=== PATIENT | male | born 1985 | race Two or more races ===

== ENCOUNTER 2021-01-15 15:03 | Inpatient (IN) | payer OTHER ==
[~2021-01-15] VITALS: Ht 170.2 cm; Wt 56.0 kg
[2021-01-15 16:35] LABS: Basophils # (auto) 0.1 10 ^3/uL (0-0.2); Basophils % (auto) 0.8 % (0.0-2.0); Eosinophils # (auto) 0.1 10 ^3/uL (0-0.8); Eosinophils % (auto) 0.5 % (0.0-7.0); Hemoglobin 9.4 g/dL (13.5-17.5); Lymphocytes % (auto) 8.3 % (10.0-50.0); Mean Corpuscular Hemoglobin 30.1 pg (28.0-32.0); Mean Corpuscular Hgb Conc. 32.2 g/dL (32.0-36.0); Mean Corpuscular Volume 93.5 fL (80.0-100.0); Monocytes # (auto) 0.3 10 ^3/uL (0-1.3); Monocytes % (auto) 2.6 % (0.0-12.0); Neutrophils # (auto) 10.4 10 ^3/uL (1.6-8.6); Neutrophils % (auto) 87.8 % (37.0-80.0); Nucleated Red Blood Cells % 0.1 %; Red Blood Cells 3.11 10^6/uL (4.5-5.90); Red Cell Distribution Width 15.2 % (11.8-14.3); White Blood Cell 11.8 10^3/uL (4.4-10.8)
[2021-01-15 16:51] LABS: Albumin 2.4 g/dL (3.4-5.0); Calcium 7.7 mg/dL (8.5-10.1); Potassium 4.3 mmol/L (3.5-5.1)
[2021-01-15 17:02] LABS: BUN/Creatinine Ratio 13.1; Bilirubin, Total 0.2 mg/dL (0.2-1.0); Total Protein 6.3 g/dL (6.4-8.2)
[2021-01-15 20:15] LABS: Urine Bacteria FEW /hpf (None Seen); Urine Blood Negative /uL (Negative); Urine Budding Yeast MODERATE /hpf (None Seen); Urine Specific Gravity 1.013 (1.001-1.035); Urine WBC 289 /hpf (0 - 3); Urine WBC Clumps PRESENT /hpf (None Seen)
[2021-01-15] MEDS ORDERED: ACETAMINOPHEN 325 MG TAB PO PRN ×2 (21:30→22:00)
[2021-01-15] MEDS ORDERED: DEXTROSE (50%) 50ML SYRG IV PRN (21:30)
[2021-01-15] MEDS ORDERED: cefTRIAXone 1GM/50ML D5W 50 ML IV ONE (21:30)
[2021-01-15] MEDS ORDERED: SODIUM CHLORIDE 0.9% 1,000 ML IV ONE (21:30)
[2021-01-15] MEDS ORDERED: HYDROcodone-ACET 5/325MG TAB PO PRN (21:30)
[2021-01-15] MEDS ORDERED: ONDANSETRON HCL 4 MG/2 ML VIAL IV PRN (21:30)
[2021-01-15 21:59] LABS: Amphetamine Screen, Urine POSITIVE (NEGATIVE); Barbiturate Scree,Urine NEGATIVE (NEGATIVE); Benzodiazephine Screen, Urine NEGATIVE (NEGATIVE); Cannabinoid Screen, Urine NEGATIVE (NEGATIVE); Cocaine Screen, Urine NEGATIVE (NEGATIVE); Opiate Scree,Urine NEGATIVE (NEGATIVE); Phencyclidine Screen, Urine NEGATIVE (NEGATIVE)
[2021-01-15] MEDS ORDERED: TEMAZEPAM 15 MG CAP PO PRN (22:00)
[2021-01-15 22:30] VITALS: BP 181/123
[2021-01-16] MEDS: InsuLIN REG 1unit/0.01ml Soln (100units/ml) SC SCH ×6 (00:09→20:29)
[2021-01-16] MEDS: ACCU-CHEK COMFORT CURVE STRIP VI SCH ×6 (00:10→20:28)
[2021-01-16 00:15] LABS: Lactic Acid w/Reflex 3.3 mmol/L (0.4-2.0)
[2021-01-16] MEDS: CLINDAMYCIN 600MG IV 50 ML IV SCH ×4 (01:00→22:11)
[2021-01-16] MEDS ORDERED: INS7030I SC (05:10)
[2021-01-16] MEDS ORDERED: INSU1INJ19 SC (05:10)
[2021-01-16 05:14] VITALS: BP 156/99
[2021-01-16 06:07] LABS: Basophils # (auto) 0.1 10 ^3/uL (0-0.2); Basophils % (auto) 0.8 % (0.0-2.0); Eosinophils # (auto) 0.1 10 ^3/uL (0-0.8); Eosinophils % (auto) 1.3 % (0.0-7.0); Hematocrit 26.2 % (41.0-53.0); Lymphocytes # (auto) 1.3 10 ^3/uL (0.4-5.4); Lymphocytes % (auto) 12.5 % (10.0-50.0); Mean Corpuscular Hemoglobin 31.4 pg (28.0-32.0); Mean Corpuscular Hgb Conc. 34.3 g/dL (32.0-36.0); Mean Corpuscular Volume 91.4 fL (80.0-100.0); Monocytes # (auto) 0.6 10 ^3/uL (0-1.3); Monocytes % (auto) 5.9 % (0.0-12.0); Neutrophils # (auto) 8.4 10 ^3/uL (1.6-8.6); Neutrophils % (auto) 79.5 % (37.0-80.0); Red Blood Cells 2.87 10^6/uL (4.5-5.90); Red Cell Distribution Width 14.3 % (11.8-14.3); White Blood Cell 10.6 10^3/uL (4.4-10.8)
[2021-01-16 06:24] LABS: Potassium 4.3 mmol/L (3.5-5.1)
[2021-01-16 06:29] LABS: Albumin 2.1 g/dL (3.4-5.0); BUN/Creatinine Ratio 14.2; Calcium 7.6 mg/dL (8.5-10.1)
[2021-01-16 06:32] LABS: Bilirubin, Total 0.2 mg/dL (0.2-1.0); Total Protein 5.3 g/dL (6.4-8.2)
[2021-01-16 09:00] VITALS: BP 125/106
[2021-01-16] MEDS ORDERED: PANTOPRAZOLE 40 MG TAB PO SCH (10:00)
[2021-01-16] MEDS: cefTRIAXone 1GM/50ML D5W 50 ML IV SCH (10:18)
[2021-01-16] MEDS ORDERED: cloNIDine HCL 0.1 MG TAB PO PRN (12:15)
[2021-01-16 13:00] VITALS: BP 172/112
[2021-01-16 17:00] VITALS: BP 143/97
[2021-01-16 21:41] VITALS: BP 148/104
[2021-01-17] MEDS: ACCU-CHEK COMFORT CURVE STRIP VI SCH ×3 (00:23→08:35)
[2021-01-17] MEDS: InsuLIN REG 1unit/0.01ml Soln (100units/ml) SC SCH ×3 (04:00→08:36)
[2021-01-17 04:47] VITALS: BP 122/87
[2021-01-17] MEDS: CLINDAMYCIN 600MG IV 50 ML IV SCH (05:58)
[2021-01-17 07:41] LABS: Alanine Aminotransferase 150 U/L (16-61); Albumin 1.9 g/dL (3.4-5.0); Alkaline Phosphatase 150 U/L (45-117); Aspartate Aminotransferase 59 U/L (15-37); Bilirubin, Direct < 0.1 mg/dL (0-0.2); Bilirubin, Total 0.2 mg/dL (0.2-1.0); Total Protein 5.1 g/dL (6.4-8.2)
[2021-01-17 08:00] VITALS: BP 142/112
[2021-01-17] MEDS: cefTRIAXone 1GM/50ML D5W 50 ML IV SCH (08:35)
[2021-01-17 09:00] VITALS: BP 142/112
[2021-01-17 10:00] VITALS: BP 128/106
[2021-01-17 10:44] VITALS: BP 128/95
[2021-01-17 11:00] VITALS: BP 140/95
[2021-01-21 10:53] LABS: Hepatitis A Total Antibody Negative (Negative)
[2021-01-21 10:58] LABS: Hepatitis B Surface Antibody Negative (Negative)
[2021-01-21 12:09] LABS: Hepatitis A Ab IgM Negative
[2021-01-21 12:56] LABS: Hepatitis B Core IgM Negative
[2021-01-21 13:12] LABS: Hepatitis C Antibody Negative (Negative)
[2021-01-21 13:13] LABS: Hepatitis C Antibody Negative (Negative)
== END 2021-01-17 11:10 | disposition home or self-care (01) | DRG 383 ==
LOC: ER 15:03 → OVERFLOW 21:20 → WEST WING 22:41
PROVIDERS: ADMIT Nurse Practitioner; ATTEND Family Medicine
DX: L03.116 Cellulitis of left lower limb (principal); E43 Unspecified severe protein-calorie malnutrition; E11.22 Type 2 diabetes mellitus with diabetic chronic kidney disease; N18.9 Chronic kidney disease, unspecified; N39.0 Urinary tract infection, site not specified; Z68.1 Body mass index [BMI] 19.9 or less, adult; Z20.822 Contact with and (suspected) exposure to COVID-19; R74.01 Elevation of levels of liver transaminase levels; R79.89 Other specified abnormal findings of blood chemistry; F12.90 Cannabis use, unspecified, uncomplicated; F15.10 Other stimulant abuse, uncomplicated; F19.10 Other psychoactive substance abuse, uncomplicated; Z71.6 Tobacco abuse counseling; Z71.51 Drug abuse counseling and surveillance of drug abuser
CPT/HCPCS: 36415; 73700; 80053; 80074; 80076; 80307; 81001; 82962; 83036; 83605; 84484; 85025; 86704; 86706; 86708; 86803; 87040; 87077; 87081; 87186; 87205; 87340; 87426; 96361; 96365; G0378; J0696; J1815; J3490

== ENCOUNTER 2021-02-20 10:20 | Inpatient (IN) | payer OTHER ==
[~2021-02-20] VITALS: Ht 170.2 cm; Wt 54.4 kg
[~2021-02-20 10:20] MED LIST: INS7030I SC; INSU1INJ19 SC
[2021-02-20 11:17] LABS: Basophils # (auto) 0.1 10 ^3/uL (0-0.2); Eosinophils # (auto) 0 10 ^3/uL (0-0.8); Eosinophils % (auto) 0.2 % (0.0-7.0); Lymphocytes # (auto) 0.9 10 ^3/uL (0.4-5.4); Mean Corpuscular Volume 100.7 fL (80.0-100.0); Monocytes # (auto) 0.4 10 ^3/uL (0-1.3); Nucleated Red Blood Cells % 0.1 %
[2021-02-20 11:21] LABS: Basophils % (auto) 0.7 % (0.0-2.0); Hematocrit 30.3 % (41.0-53.0); Lymphocytes % (auto) 7.4 % (10.0-50.0); Mean Corpuscular Hemoglobin 29.8 pg (28.0-32.0); Mean Corpuscular Hgb Conc. 29.6 g/dL (32.0-36.0); Neutrophils # (auto) 10.3 10 ^3/uL (1.6-8.6); Neutrophils % (auto) 88.7 % (37.0-80.0); Red Blood Cells 3.01 10^6/uL (4.5-5.90); White Blood Cell 11.6 10^3/uL (4.4-10.8)
[2021-02-20 11:24] LABS: Potassium 3.7 mmol/L (3.5-5.1)
[2021-02-20] MEDS ORDERED: SODIUM CHLORIDE 0.9% 500 ML IV ONE (11:30)
[2021-02-20] MEDS ORDERED: CLINDAMYCIN 600MG IV 50 ML IV ONE (11:30)
[2021-02-20 11:32] LABS: Albumin 2.3 g/dL (3.4-5.0); BUN/Creatinine Ratio 13.8; Bilirubin, Total 0.2 mg/dL (0.2-1.0); Calcium 7.7 mg/dL (8.5-10.1); Total Protein 6.3 g/dL (6.4-8.2)
[2021-02-20] MEDS ORDERED: InsuLIN REG 1unit/0.01ml Soln (100units/ml) IV ONE (12:15)
[2021-02-20] MEDS ORDERED: INSULIN LANTUS (GLARGINE) 1 /0.01ml (100units/ml) SC ONE (12:15)
[2021-02-20] MEDS ORDERED: DEXTROSE (50%) 50ML SYRG IV PRN (12:15)
[2021-02-20] MEDS: InsuLIN R (HUMAN) 100 UNITS in SODIUM CHL 0.9% 99 ML IV SCH ×2 (12:15→13:39)
[2021-02-20] MEDS: ACCU-CHEK COMFORT CURVE STRIP VI SCH ×4 (13:38→18:13)
[2021-02-20] MEDS ORDERED: MORPHINE SULFATE INJECTION 2 MG/ML SYRG IV PRN ×3 (15:15→15:45)
[2021-02-20] MEDS ORDERED: NITROGLYCERIN 0.4 MG SL TAB SL PRN ×2 (15:15→15:45)
[2021-02-20 15:31] VITALS: BP 151/101
[2021-02-20] MEDS ORDERED: hydrALAZINE HCL 20 MG/ML VL IV PRN (15:45)
[2021-02-20] MEDS ORDERED: DOCUSATE SOD 100 MG CAP PO PRN (15:45)
[2021-02-20] MEDS ORDERED: HYDROcodone-ACET 5/325MG TAB PO PRN (15:45)
[2021-02-20] MEDS ORDERED: LACTATED RINGER'S 2,000 ML IV ONE (15:45)
[2021-02-20] MEDS ORDERED: D5W/SOD CHLO 0.9% 1,000 ML IV PRN (15:45)
[2021-02-20] MEDS ORDERED: PIPERACILLIN-TAZOB 2.25GM 50 ML IV ONE (15:45)
[2021-02-20] MEDS ORDERED: SOD CHL 0.9%/ KCL 20MEQ 1,000 ML IV PRN (15:45)
[2021-02-20] MEDS ORDERED: PANTOPRAZOLE 40 MG/10 ML VIAL INJ IV ONE (15:45)
[2021-02-20] MEDS ORDERED: METOCLOPRAMIDE HCL 5MG/ml INJ 2ml VIAL IV PRN (15:45)
[2021-02-20] MEDS ORDERED: LORazepam 0.5 MG TAB PO PRN (15:45)
[2021-02-20] MEDS ORDERED: ACETAMINOPHEN 325 MG TAB PO PRN (15:45)
[2021-02-20] MEDS ORDERED: VANCOMYCIN PER PHARMACY 0 MG IV SCH (15:45)
[2021-02-20] MEDS ORDERED: SODIUM CHLORIDE 0.9% 3,000 ML IV ONE (15:45)
[2021-02-20] MEDS ORDERED: SODIUM CHLORIDE 0.9% 1,000 ML IV SCH (15:45)
[2021-02-20] MEDS ORDERED: ENOXAPARIN SOD 30 MG/0.3 ML SYRINGE SC ONE (15:45)
[2021-02-20] MEDS ORDERED: ALUM & MAG HYDROX-SIMETH LIQ(MAALOX) 30 ML PO PRN (15:45)
[2021-02-20 16:31] LABS: Urine Bacteria FEW /hpf (None Seen); Urine Blood Negative /uL (Negative); Urine Budding Yeast FEW /hpf (None Seen); Urine Hyaline Cast FEW /lpf (0 - 2); Urine Specific Gravity 1.016 (1.001-1.035); Urine WBC 60 /hpf (0 - 3)
[2021-02-20 16:42] LABS: Alcohol, Urine < 3.0 mg/dL (0-10); Amphetamine Screen, Urine POSITIVE (NEGATIVE); Barbiturate Scree,Urine NEGATIVE (NEGATIVE); Benzodiazephine Screen, Urine NEGATIVE (NEGATIVE); Cocaine Screen, Urine NEGATIVE (NEGATIVE); Phencyclidine Screen, Urine NEGATIVE (NEGATIVE)
[2021-02-20 16:50] LABS: Cannabinoid Screen, Urine NEGATIVE (NEGATIVE); Opiate Scree,Urine NEGATIVE (NEGATIVE)
[2021-02-20] MEDS ORDERED: VANCOMYCIN 1GM/250ML 250 ML IV ONE (17:00)
[2021-02-20 17:23] LABS: % Iron Saturation 26.8 % (20-55)
[2021-02-20 17:25] LABS: Cholesterol 154 mg/dL (< 200)
[2021-02-20 17:28] LABS: HDL Cholesterol 94 mg/dL (40-59); LDL Cholesterol 42 mg/dL (< 100); Triglycerides 109 mg/dL (< 150)
[2021-02-20 18:51] LABS: INR 1.06 (0.9-1.15); Partial Thromboplastin Time 28.8 sec (23.6-33.0)
[2021-02-20] MEDS ORDERED: ATORVASTATIN 20 MG TAB PO SCH (22:00)
[2021-02-20] MEDS ORDERED: PIPERACILLIN-TAZOB 2.25GM 50 ML IV SCH (22:00)
[2021-02-21] MEDS ORDERED: PANTOPRAZOLE 40 MG/10 ML VIAL INJ IV SCH (10:00)
[2021-02-21] MEDS ORDERED: INSULIN LANTUS (GLARGINE) 1 /0.01ml (100units/ml) SC SCH (10:00)
[2021-02-21] MEDS ORDERED: ASPirin 81 mg TAB PO SCH (10:00)
[2021-02-21] MEDS ORDERED: ENOXAPARIN SOD 30 MG/0.3 ML SYRINGE SC SCH (10:00)
== END 2021-02-20 19:02 | disposition left against medical advice (07) | DRG 720 ==
LOC: ER 10:20 → OVERFLOW 15:09
PROVIDERS: ADMIT Hospitalist; ATTEND Internal Medicine
DX: A41.9 Sepsis, unspecified organism (principal); N17.0 Acute kidney failure with tubular necrosis; E43 Unspecified severe protein-calorie malnutrition; E11.10 Type 2 diabetes mellitus with ketoacidosis without coma; D63.8 Anemia in other chronic diseases classified elsewhere; E11.22 Type 2 diabetes mellitus with diabetic chronic kidney disease; D50.0 Iron deficiency anemia secondary to blood loss (chronic); L03.116 Cellulitis of left lower limb; E78.5 Hyperlipidemia, unspecified; F17.210 Nicotine dependence, cigarettes, uncomplicated; I12.9 Hypertensive chronic kidney disease with stage 1 through stage 4 chronic kidney disease, or unspecified chronic kidney disease; K29.70 Gastritis, unspecified, without bleeding; Z53.29 Procedure and treatment not carried out because of patient's decision for other reasons; I16.9 Hypertensive crisis, unspecified; Z68.1 Body mass index [BMI] 19.9 or less, adult; E11.40 Type 2 diabetes mellitus with diabetic neuropathy, unspecified; K21.9 Gastro-esophageal reflux disease without esophagitis; N18.4 Chronic kidney disease, stage 4 (severe); B19.9 Unspecified viral hepatitis without hepatic coma; F19.10 Other psychoactive substance abuse, uncomplicated; F12.10 Cannabis abuse, uncomplicated; F15.10 Other stimulant abuse, uncomplicated; Z83.3 Family history of diabetes mellitus; Z89.412 Acquired absence of left great toe; Z91.19 Patient's noncompliance with other medical treatment and regimen; Z82.3 Family history of stroke; R65.20 Severe sepsis without septic shock; Z79.4 Long term (current) use of insulin
CPT/HCPCS: 36415; 36600; 71045; 73700; 76705; 80053; 80061; 80307; 81001; 82010; 82805; 82962; 83036; 83540; 83550; 83880; 83930; 84443; 84484; 85025; 85610; 85652; 85730; 86850; 86900; 86901; 87040; 87086; 93005; 96365; 96372; 96375; 99291; C9113; G0378; J1815; J2543; J3490

== ENCOUNTER 2021-03-02 01:19 | Emergency (ER) | payer OTHER ==
[~2021-03-02] VITALS: Ht 170.2 cm; Wt 54.4 kg
[2021-03-02 03:31] LABS: Lymphocytes # (auto) 0.8 10 ^3/uL (0.4-5.4); Monocytes # (auto) 0.5 10 ^3/uL (0-1.3); Monocytes % (auto) 4.7 % (0.0-12.0); Neutrophils # (auto) 9.8 10 ^3/uL (1.6-8.6)
[2021-03-02 03:33] LABS: Basophils # (auto) 0 10 ^3/uL (0-0.2); Basophils % (auto) 0.3 % (0.0-2.0); Eosinophils # (auto) 0 10 ^3/uL (0-0.8); Eosinophils % (auto) 0.4 % (0.0-7.0); Hematocrit 24.8 % (41.0-53.0); Hemoglobin 8.3 g/dL (13.5-17.5); Lymphocytes % (auto) 7.4 % (10.0-50.0); Mean Corpuscular Hemoglobin 29.9 pg (28.0-32.0); Mean Corpuscular Hgb Conc. 33.3 g/dL (32.0-36.0); Mean Corpuscular Volume 89.9 fL (80.0-100.0); Neutrophils % (auto) 87.2 % (37.0-80.0); Red Blood Cells 2.76 10^6/uL (4.5-5.90); Red Cell Distribution Width 17.1 % (11.8-14.3); White Blood Cell 11.2 10^3/uL (4.4-10.8)
[2021-03-02 03:49] LABS: Albumin 2.4 g/dL (3.4-5.0); Magnesium 3.1 mg/dL (1.6-2.6); Potassium 3.3 mmol/L (3.5-5.1)
[2021-03-02 03:52] LABS: BUN/Creatinine Ratio 14.8; Bilirubin, Total 0.2 mg/dL (0.2-1.0); Total Protein 6.3 g/dL (6.4-8.2)
[2021-03-02] MEDS ORDERED: CEFEPIME 2 GM in SODIUM CHL 0.9% 50 ML IV ONE (04:30)
[2021-03-02] MEDS ORDERED: VANCOMYCIN 1GM/250ML 250 ML IV ONE (04:30)
[2021-03-02 12:20] VITALS: BP 125/80
== END 2021-03-02 12:22 | disposition home or self-care (01) ==
LOC: ER 01:19
DX: L03.116 Cellulitis of left lower limb (principal); L03.115 Cellulitis of right lower limb; E11.65 Type 2 diabetes mellitus with hyperglycemia; E11.22 Type 2 diabetes mellitus with diabetic chronic kidney disease; I12.9 Hypertensive chronic kidney disease with stage 1 through stage 4 chronic kidney disease, or unspecified chronic kidney disease; N18.9 Chronic kidney disease, unspecified; F17.210 Nicotine dependence, cigarettes, uncomplicated; Z20.822 Contact with and (suspected) exposure to COVID-19
CPT/HCPCS: 36415; 73590; 80053; 82140; 83605; 83735; 85025; 85652; 87040; 87426; 96365; 96366; 96367; 99285; J0692; J3370

== ENCOUNTER 2021-03-12 14:08 | Inpatient (IN) | payer OTHER ==
[~2021-03-12] VITALS: Ht 165.1 cm; Wt 48.8 kg
[2021-03-12] MEDS ORDERED: CLINDAMYCIN 600 MG/4 ML VL IM ONE (15:15)
[2021-03-12] MEDS ORDERED: cefTRIAXone W LIDOCAINE 1 GM IM IM ONE (15:15)
[2021-03-12] MEDS ORDERED: SODIUM CHLORIDE 0.9% 1,000 ML IV ONE (21:30)
[2021-03-12 22:43] LABS: Basophils # (auto) 0.1 10 ^3/uL (0-0.2); Basophils % (auto) 0.4 % (0.0-2.0); Eosinophils # (auto) 0 10 ^3/uL (0-0.8); Monocytes # (auto) 0.5 10 ^3/uL (0-1.3); Monocytes % (auto) 3.1 % (0.0-12.0); Nucleated Red Blood Cells % 0.1 %; Red Blood Cells 2.55 10^6/uL (4.5-5.90)
[2021-03-12 22:44] LABS: Hematocrit 23.3 % (41.0-53.0); Hemoglobin 7.4 g/dL (13.5-17.5); Lymphocytes # (auto) 1.1 10 ^3/uL (0.4-5.4); Lymphocytes % (auto) 7.1 % (10.0-50.0); Mean Corpuscular Hemoglobin 29.2 pg (28.0-32.0); Mean Corpuscular Hgb Conc. 31.9 g/dL (32.0-36.0); Mean Corpuscular Volume 91.5 fL (80.0-100.0); Neutrophils # (auto) 14.1 10 ^3/uL (1.6-8.6); Neutrophils % (auto) 89.4 % (37.0-80.0); Red Cell Distribution Width 17.1 % (11.8-14.3); White Blood Cell 15.8 10^3/uL (4.4-10.8)
[2021-03-12 23:01] LABS: Alanine Aminotransferase 90 U/L (16-61); Albumin 1.6 g/dL (3.4-5.0); Anion Gap 10 (5-15); Aspartate Aminotransferase 155 U/L (15-37); BUN/Creatinine Ratio 15.1; Blood Alcohol < 3.0 mg/dL (0-5); Blood Urea Nitrogen 57 mg/dL (7-18); Calcium 8.2 mg/dL (8.5-10.1); Carbon Dioxide 14 mmol/L (21-32); Chloride 118 mmol/L (98-107); GFR African American 24 mL/min; GFR Non-African American 20 mL/min; Glucose 218 mg/dL (74-106); Potassium 4.2 mmol/L (3.5-5.1); Sodium 142 mmol/L (136-145)
[2021-03-12 23:04] LABS: Alkaline Phosphatase 241 U/L (45-117); Bilirubin, Total 0.2 mg/dL (0.2-1.0); Lactic Acid w/Reflex 2.5 mmol/L (0.4-2.0); Total Protein 5.5 g/dL (6.4-8.2)
[2021-03-13] VITALS (7 sets, daily range): BP systolic 120–146; BP diastolic 79–101
[2021-03-13] MEDS ORDERED: ONDANSETRON HCL 4 MG/2 ML VIAL IV PRN (06:45)
[2021-03-13] MEDS ORDERED: DEXTROSE (50%) 50ML SYRG IV PRN ×2 (06:45→15:45)
[2021-03-13] MEDS ORDERED: TEMAZEPAM 15 MG CAP PO PRN (06:45)
[2021-03-13] MEDS ORDERED: SODIUM CHLORIDE 0.9% 500 ML IV ONE (06:45)
[2021-03-13] MEDS: ACCU-CHEK COMFORT CURVE STRIP VI SCH ×3 (08:00→18:05)
[2021-03-13] MEDS: InsuLIN REG 1unit/0.01ml Soln (100units/ml) SC SCH ×3 (08:05→18:07)
[2021-03-13] MEDS: SODIUM CHLORIDE 0.9% 1,000 ML IV SCH ×2 (08:27→20:00)
[2021-03-13] MEDS ORDERED: cefTRIAXone 1GM/50ML D5W 50 ML IV SCH (09:00)
[2021-03-13] MEDS: ZINC SULFATE 220mg CAP or TAB PO SCH (09:24)
[2021-03-13] MEDS: ASCORBIC ACID 500 MG TAB PO SCH ×2 (09:25→21:10)
[2021-03-13] MEDS: HYDROcodone-ACET 5/325MG TAB PO PRN ×2 (09:56→21:10)
[2021-03-13] MEDS ORDERED: CLINDAMYCIN 600MG IV 50 ML IV SCH (14:00)
[2021-03-13 14:49] LABS: Basophils # (auto) 0 10 ^3/uL (0-0.2); Eosinophils # (auto) 0 10 ^3/uL (0-0.8); Lymphocytes # (auto) 0.9 10 ^3/uL (0.4-5.4); Lymphocytes % (auto) 4.6 % (10.0-50.0); Monocytes # (auto) 0.5 10 ^3/uL (0-1.3); Nucleated Red Blood Cells % 0.1 %
[2021-03-13 14:52] LABS: Basophils % (auto) 0.1 % (0.0-2.0); Hematocrit 21.3 % (41.0-53.0); Mean Corpuscular Hemoglobin 29.3 pg (28.0-32.0); Mean Corpuscular Hgb Conc. 32.3 g/dL (32.0-36.0); Mean Corpuscular Volume 90.7 fL (80.0-100.0); Monocytes % (auto) 2.4 % (0.0-12.0); Neutrophils % (auto) 92.9 % (37.0-80.0); Red Blood Cells 2.34 10^6/uL (4.5-5.90); Red Cell Distribution Width 16.8 % (11.8-14.3); White Blood Cell 20.4 10^3/uL (4.4-10.8)
[2021-03-13 15:01] LABS: Hemoglobin 6.9 g/dL (13.5-17.5)
[2021-03-13 16:14] LABS: Alanine Aminotransferase 84 U/L (16-61); Albumin 1.5 g/dL (3.4-5.0); Alkaline Phosphatase 233 U/L (45-117); Anion Gap 12 (5-15); Aspartate Aminotransferase 93 U/L (15-37); Bilirubin, Total < 0.1 mg/dL (0.2-1.0); Blood Urea Nitrogen 54 mg/dL (7-18); Calcium 7.6 mg/dL (8.5-10.1); Carbon Dioxide 11 mmol/L (21-32); Chloride 119 mmol/L (98-107); GFR African American 25 mL/min; GFR Non-African American 21 mL/min; Glucose 128 mg/dL (74-106); Potassium 3.8 mmol/L (3.5-5.1); Sodium 142 mmol/L (136-145); Total Protein 5.3 g/dL (6.4-8.2)
[2021-03-13] MEDS ORDERED: FLUCONAZOLE 100 MG TAB PO ONE (16:30)
[2021-03-13] MEDS: SODIUM BICARBONATE 650 MG TAB PO SCH ×2 (18:04→21:10)
[2021-03-13] MEDS: AMPICILLIN INJ 1 GM in SODIUM CHL 0.9% 50 ML IV SCH (18:04)
[2021-03-13 19:40] LABS: Urine Bacteria NONE SEEN /hpf (None Seen); Urine Blood 1+ /uL (Negative); Urine Budding Yeast LOADED /hpf (None Seen); Urine WBC 40 /hpf (0 - 3)
[2021-03-13] MEDS: INSULIN LANTUS (GLARGINE) 1 /0.01ml (100units/ml) SC SCH (21:17)
[2021-03-14] MEDS: ACCU-CHEK COMFORT CURVE STRIP VI SCH ×5 (00:08→23:16)
[2021-03-14] MEDS: InsuLIN REG 1unit/0.01ml Soln (100units/ml) SC SCH ×5 (00:13→23:17)
[2021-03-14] MEDS: AMPICILLIN INJ 1 GM in SODIUM CHL 0.9% 50 ML IV SCH ×3 (02:07→18:26)
[2021-03-14 05:00] VITALS: BP 134/96
[2021-03-14] MEDS: SODIUM BICARBONATE 650 MG TAB PO SCH ×4 (05:39→21:28)
[2021-03-14 08:17] LABS: Basophils # (auto) 0 10 ^3/uL (0-0.2); Eosinophils # (auto) 0 10 ^3/uL (0-0.8); Red Cell Distribution Width 17.1 % (11.8-14.3)
[2021-03-14 08:20] LABS: Basophils % (auto) 0.1 % (0.0-2.0); Hematocrit 24.6 % (41.0-53.0); Hemoglobin 7.9 g/dL (13.5-17.5); Lymphocytes # (auto) 0.6 10 ^3/uL (0.4-5.4); Lymphocytes % (auto) 2.6 % (10.0-50.0); Mean Corpuscular Hemoglobin 28.6 pg (28.0-32.0); Mean Corpuscular Hgb Conc. 32.2 g/dL (32.0-36.0); Mean Corpuscular Volume 88.7 fL (80.0-100.0); Monocytes # (auto) 0.5 10 ^3/uL (0-1.3); Monocytes % (auto) 2.1 % (0.0-12.0); Neutrophils # (auto) 22.5 10 ^3/uL (1.6-8.6); Neutrophils % (auto) 95.2 % (37.0-80.0); Nucleated Red Blood Cells % 0.1 %; Red Blood Cells 2.78 10^6/uL (4.5-5.90); White Blood Cell 23.6 10^3/uL (4.4-10.8)
[2021-03-14 08:41] LABS: Potassium 3.5 mmol/L (3.5-5.1)
[2021-03-14 08:57] LABS: Albumin 1.4 g/dL (3.4-5.0); BUN/Creatinine Ratio 16.7; Bilirubin, Total 0.1 mg/dL (0.2-1.0); Calcium 7.4 mg/dL (8.5-10.1); Total Protein 5.2 g/dL (6.4-8.2)
[2021-03-14 09:00] VITALS: BP 124/89
[2021-03-14] MEDS: cefTRIAXone 1GM/50ML D5W 50 ML IV SCH (09:22)
[2021-03-14] MEDS: ZINC SULFATE 220mg CAP or TAB PO SCH (09:23)
[2021-03-14] MEDS: FLUCONAZOLE 100 MG TAB PO SCH (09:23)
[2021-03-14] MEDS: ASCORBIC ACID 500 MG TAB PO SCH ×2 (09:23→21:29)
[2021-03-14] MEDS: SODIUM CHLORIDE 0.9% 1,000 ML IV SCH ×2 (09:25→22:45)
[2021-03-14 10:58] LABS: Hepatitis A Ab IgM Negative
[2021-03-14 11:10] LABS: Hepatitis B Core IgM Negative
[2021-03-14 11:17] LABS: Hepatitis C Antibody Negative (Negative)
[2021-03-14 13:00] VITALS: BP 142/93
[2021-03-14] MEDS: HYDROcodone-ACET 5/325MG TAB PO PRN (15:12)
[2021-03-14 16:14] VITALS: BP 148/103
[2021-03-14 22:00] VITALS: BP 148/103
[2021-03-14] MEDS: INSULIN LANTUS (GLARGINE) 1 /0.01ml (100units/ml) SC SCH (23:16)
[2021-03-15] MEDS: HYDROcodone-ACET 5/325MG TAB PO PRN ×2 (01:22→23:44)
[2021-03-15] MEDS: AMPICILLIN INJ 1 GM in SODIUM CHL 0.9% 50 ML IV SCH ×2 (02:08→10:36)
[2021-03-15 05:00] VITALS: BP 128/89
[2021-03-15] MEDS: InsuLIN REG 1unit/0.01ml Soln (100units/ml) SC SCH ×3 (05:28→18:24)
[2021-03-15] MEDS: ACCU-CHEK COMFORT CURVE STRIP VI SCH ×4 (05:28→18:23)
[2021-03-15] MEDS: SODIUM BICARBONATE 650 MG TAB PO SCH ×4 (05:30→21:42)
[2021-03-15 08:24] LABS: Chloride 123 mmol/L (98-107); Sodium 147 mmol/L (136-145)
[2021-03-15 08:43] LABS: Alanine Aminotransferase 47 U/L (16-61); Albumin 1.2 g/dL (3.4-5.0); Alkaline Phosphatase 175 U/L (45-117); Anion Gap 8 (5-15); Aspartate Aminotransferase 28 U/L (15-37); BUN/Creatinine Ratio 17.3; Bilirubin, Direct < 0.1 mg/dL (0-0.2); Bilirubin, Total < 0.1 mg/dL (0.2-1.0); Blood Urea Nitrogen 51 mg/dL (7-18); Calcium 7.4 mg/dL (8.5-10.1); Carbon Dioxide 16 mmol/L (21-32); GFR African American 32 mL/min; GFR Non-African American 26 mL/min
[2021-03-15 09:00] VITALS: BP 127/89
[2021-03-15] MEDS: cefTRIAXone 1GM/50ML D5W 50 ML IV SCH (09:04)
[2021-03-15 09:29] LABS: Glucose 48 mg/dL (74-106)
[2021-03-15] MEDS ORDERED: POTASSIUM CHL 20 Meq TABLET PO ONE (09:45)
[2021-03-15] MEDS: ASCORBIC ACID 500 MG TAB PO SCH ×2 (10:36→21:43)
[2021-03-15] MEDS: FLUCONAZOLE 100 MG TAB PO SCH (10:36)
[2021-03-15] MEDS: ZINC SULFATE 220mg CAP or TAB PO SCH (10:36)
[2021-03-15] MEDS ORDERED: VANCOMYCIN PER PHARMACY 0 MG IV SCH (11:45)
[2021-03-15] MEDS ORDERED: REMDESIVIR PER PHARMACY 0 ML IV SCH ×2 (12:00→13:00)
[2021-03-15 13:00] VITALS: BP 129/90
[2021-03-15] MEDS ORDERED: VANCOMYCIN 1GM/250ML 250 ML IV ONE (13:00)
[2021-03-15] MEDS ORDERED: DEXTROSE (25%) 10 ML SYRG IV ONE (14:00)
[2021-03-15] MEDS ORDERED: DEXTROSE (50%) 50ML SYRG IV PRN (14:00)
[2021-03-15] MEDS ORDERED: REMDESIVIR 200 MG in NS 210ml LOADING DOSE ADULT IV ONE ×4 (15:00)
[2021-03-15] MEDS: PIPERACILLIN-TAZOB 3.375GM 100 ML IV SCH ×2 (16:49→23:43)
[2021-03-15 17:00] VITALS: BP 140/90
[2021-03-15] MEDS: ACETAMINOPHEN 325 MG TAB PO PRN (18:13)
[2021-03-15 22:00] VITALS: BP 110/80
[2021-03-15] MEDS ORDERED: INSULIN LANTUS (GLARGINE) 1 /0.01ml (100units/ml) SC SCH (22:00)
[2021-03-16] MEDS: ACCU-CHEK COMFORT CURVE STRIP VI SCH ×8 (00:13→23:18)
[2021-03-16] MEDS: InsuLIN REG 1unit/0.01ml Soln (100units/ml) SC SCH ×5 (00:22→23:26)
[2021-03-16 05:00] VITALS: BP 131/92
[2021-03-16] MEDS: SODIUM BICARBONATE 650 MG TAB PO SCH ×4 (05:57→21:24)
[2021-03-16] MEDS: PIPERACILLIN-TAZOB 3.375GM 100 ML IV SCH ×3 (06:46→23:19)
[2021-03-16 08:00] VITALS: BP 124/89
[2021-03-16 09:00] VITALS: BP 124/89
[2021-03-16] MEDS: ASCORBIC ACID 500 MG TAB PO SCH ×2 (09:33→21:24)
[2021-03-16] MEDS: ZINC SULFATE 220mg CAP or TAB PO SCH (09:33)
[2021-03-16] MEDS: HYDROcodone-ACET 5/325MG TAB PO PRN ×2 (09:34→16:20)
[2021-03-16 10:33] LABS: Potassium 4.2 mmol/L (3.5-5.1)
[2021-03-16] MEDS: SODIUM CHLORIDE 0.9% 1,000 ML IV SCH (12:00)
[2021-03-16] MEDS ORDERED: ENOXAPARIN SOD 30 MG/0.3 ML SYRINGE SC ONE (12:00)
[2021-03-16 13:00] VITALS: BP 122/92
[2021-03-16 13:20] LABS: Eosinophils # (auto) 0 10 ^3/uL (0-0.8); Hemoglobin 7.8 g/dL (13.5-17.5); Mean Corpuscular Volume 89.1 fL (80.0-100.0); Monocytes # (auto) 0.2 10 ^3/uL (0-1.3)
[2021-03-16 13:22] LABS: Basophils # (auto) 0.1 10 ^3/uL (0-0.2); Basophils % (auto) 0.4 % (0.0-2.0); Eosinophils % (auto) 0.3 % (0.0-7.0); Hematocrit 24.4 % (41.0-53.0); Lymphocytes # (auto) 0.7 10 ^3/uL (0.4-5.4); Lymphocytes % (auto) 4.4 % (10.0-50.0); Mean Corpuscular Hemoglobin 28.6 pg (28.0-32.0); Monocytes % (auto) 1.3 % (0.0-12.0); Neutrophils % (auto) 93.6 % (37.0-80.0); Nucleated Red Blood Cells % 0.1 %; Red Blood Cells 2.74 10^6/uL (4.5-5.90); Red Cell Distribution Width 17.6 % (11.8-14.3); White Blood Cell 17.1 10^3/uL (4.4-10.8)
[2021-03-16] MEDS ORDERED: REMDESIVIR 100mg 100 MG in SODIUM CHL 0.9% 230 ML IV SCH (15:00)
[2021-03-16] MEDS ORDERED: FLUCONAZOLE 100 MG TAB PO ONE (15:00)
[2021-03-16] MEDS: REMDESIVIR 100mg 50 MG in SODIUM CHL 0.9% 90 ML IV SCH (15:43)
[2021-03-16 16:52] VITALS: BP 134/101
[2021-03-16] MEDS ORDERED: VANCOMYCIN 500 MG in D5W 5% 100 ML IV SCH (18:00)
[2021-03-16 22:00] VITALS: BP 129/80
[2021-03-16] MEDS ORDERED: ETOMIDATE (2MG/ML) 20ML VIAL IV ONE (23:44)
[2021-03-16] MEDS ORDERED: SUCCINYLCHOLINE CHLORIDE 20 MG/ML 10ML VIAL IV ONE (23:44)
[2021-03-17] VITALS (26 sets, daily range): BP systolic 82–163; BP diastolic 49–106
[2021-03-17] MEDS ORDERED: MIDAZOLAM DRIP 50 mg/50mL 100 ML IV ONE (00:26)
[2021-03-17] MEDS: MIDAZOLAM DRIP 50 mg/50mL 50 ML IV SCH ×5 (00:45→22:50)
[2021-03-17] MEDS: PROPOFOL 100 ML IV SCH ×2 (00:45→06:37)
[2021-03-17] MEDS ORDERED: PROPOFOL 100 ML IV ONE (01:06)
[2021-03-17] MEDS: fentaNYL Drip 2500mCg/250mlNS 250 ML IV SCH ×3 (01:15→22:52)
[2021-03-17] MEDS ORDERED: NOREPINEPHRINE 8 MG/250ML KIT 250 ML IV SCH (01:15)
[2021-03-17] MEDS: NOREPINEPHRINE 8 MG/250ML KIT 250 ML IV SCH (01:30)
[2021-03-17] MEDS ORDERED: NOREPINEPHRINE 8 MG/250ML KIT 250 ML IV ONE (02:15)
[2021-03-17] MEDS: SODIUM CHLORIDE 0.9% 1,000 ML IV SCH ×2 (04:24→23:02)
[2021-03-17] MEDS: ACCU-CHEK COMFORT CURVE STRIP VI SCH ×3 (06:00→16:40)
[2021-03-17] MEDS: InsuLIN REG 1unit/0.01ml Soln (100units/ml) SC SCH ×3 (06:00→18:00)
[2021-03-17] MEDS: SODIUM BICARBONATE 650 MG TAB PO SCH ×3 (06:00→17:31)
[2021-03-17] MEDS: PIPERACILLIN-TAZOB 3.375GM 100 ML IV SCH (08:00)
[2021-03-17] MEDS: ZINC SULFATE 220mg CAP or TAB PO SCH (09:32)
[2021-03-17] MEDS: FLUCONAZOLE 100 MG TAB PO SCH (09:32)
[2021-03-17] MEDS: ENOXAPARIN SOD 30 MG/0.3 ML SYRINGE SC SCH (09:32)
[2021-03-17] MEDS: ASCORBIC ACID 500 MG TAB PO SCH ×2 (09:32→23:00)
[2021-03-17] MEDS: ACETAMINOPHEN 325 MG TAB PO PRN (12:00)
[2021-03-17] MEDS ORDERED: VANCOMYCIN 1GM/250ML 250 ML IV ONE (12:00)
[2021-03-17] MEDS ORDERED: PHENYLEPHRINE IV 250 ML IV ONE (12:25)
[2021-03-17] MEDS: PHENYLEPHRINE IV 250 ML IV SCH (12:30)
[2021-03-17 12:51] LABS: Basophils # (auto) 0 10 ^3/uL (0-0.2); Basophils % (auto) 0.1 % (0.0-2.0); Eosinophils # (auto) 0 10 ^3/uL (0-0.8); Hematocrit 30.9 % (41.0-53.0); Hemoglobin 9.6 g/dL (13.5-17.5); Lymphocytes # (auto) 0.7 10 ^3/uL (0.4-5.4); Lymphocytes % (auto) 3.6 % (10.0-50.0); Mean Corpuscular Hemoglobin 27.6 pg (28.0-32.0); Mean Corpuscular Hgb Conc. 31.2 g/dL (32.0-36.0); Mean Corpuscular Volume 88.6 fL (80.0-100.0); Monocytes # (auto) 0.2 10 ^3/uL (0-1.3); Monocytes % (auto) 0.7 % (0.0-12.0); Neutrophils # (auto) 19.7 10 ^3/uL (1.6-8.6); Neutrophils % (auto) 95.6 % (37.0-80.0); Red Blood Cells 3.49 10^6/uL (4.5-5.90); Red Cell Distribution Width 17.7 % (11.8-14.3); White Blood Cell 20.7 10^3/uL (4.4-10.8)
[2021-03-17 12:56] LABS: Chloride 116 mmol/L (98-107); Sodium 141 mmol/L (136-145)
[2021-03-17 13:14] LABS: Alanine Aminotransferase 32 U/L (16-61); Alkaline Phosphatase 186 U/L (45-117); Anion Gap 12 (5-15); Aspartate Aminotransferase 59 U/L (15-37); BUN/Creatinine Ratio 12.2; Bilirubin, Total < 0.1 mg/dL (0.2-1.0); Blood Urea Nitrogen 43 mg/dL (7-18); Calcium 6.4 mg/dL (8.5-10.1); Carbon Dioxide 13 mmol/L (21-32); GFR African American 26 mL/min; GFR Non-African American 21 mL/min; Glucose 103 mg/dL (74-106); Total Protein 5.1 g/dL (6.4-8.2)
[2021-03-17 13:17] LABS: Potassium 5.7 mmol/L (3.5-5.1)
[2021-03-17] MEDS ORDERED: DEXTROSE (50%) 50ML SYRG IV STA (14:47)
[2021-03-17] MEDS ORDERED: InsuLIN REG 1unit/0.01ml Soln (100units/ml) IV STA (14:47)
[2021-03-17] MEDS: REMDESIVIR 100mg 50 MG in SODIUM CHL 0.9% 90 ML IV SCH (14:53)
[2021-03-17] MEDS ORDERED: SODIUM ZIRCONIUM CYCL 10 GM PAK ONE (14:55)
[2021-03-17] MEDS ORDERED: SODIUM ZIRCONIUM CYCL 10 GM PAK PO ONE (15:00)
[2021-03-17] MEDS ORDERED: LORazepam 2MG/ML-1ML VIAL ONE ×5 (15:32→18:01)
[2021-03-17 16:23] LABS: BUN/Creatinine Ratio 12.4; Calcium 6.9 mg/dL (8.5-10.1); Magnesium 2.6 mg/dL (1.6-2.6); Phosphorus 5.5 mg/dL (2.5-4.90); Potassium 5.1 mmol/L (3.5-5.1)
[2021-03-17] MEDS ORDERED: ACETAMINOPHEN 650 MG RECT SUPP PR ONE (16:35)
[2021-03-17] MEDS ORDERED: SODIUM CHLORIDE 0.9% 500 ML IV ONE (16:45)
[2021-03-17] MEDS ORDERED: ACETAMINOPHEN 650 MG RECT SUPP PR PRN (16:45)
[2021-03-17] MEDS ORDERED: Glucerna 1.2 Cal 1Liter BOTTLE GT SCH (17:00)
[2021-03-17] MEDS ORDERED: SODIUM CHLORIDE 0.9% 2,000 ML IV ONE (17:15)
[2021-03-17] MEDS ORDERED: LORazepam 2MG/ML-1ML VIAL IV PRN (17:30)
[2021-03-17] MEDS: PIPERACILLIN-TAZOB 2.25GM 50 ML IV SCH (17:31)
[2021-03-17 17:33] LABS: Creatinine, Urine 28 mg/dL (30.0-125.0); Sodium Urine 31 mmol/L (40-220)
[2021-03-17] MEDS ORDERED: PHENYTOIN IV DILANTIN 1,000 MG in SODIUM CHL 0.9% 250 ML IV ONE (18:45)
[2021-03-17 19:10] LABS: Mean Corpuscular Volume 89.6 fL (80.0-100.0); Red Cell Distribution Width 17.5 % (11.8-14.3); White Blood Cell 20.2 10^3/uL (4.4-10.8)
[2021-03-17 19:12] LABS: Hematocrit 24.5 % (41.0-53.0); Mean Corpuscular Hemoglobin 29.3 pg (28.0-32.0); Mean Corpuscular Hgb Conc. 32.7 g/dL (32.0-36.0); Red Blood Cells 2.73 10^6/uL (4.5-5.90)
[2021-03-17 19:19] LABS: Basophils % (manual) 0 (0.0-2.0); Blast Cells 0; Eosinophils % (manual) 0 (0-7); Metamyelocytes % 0; Myelocytes % 0; Promyelocytes % 0; Reactive Lymphocytes 0
[2021-03-17 19:21] LABS: Anion Gap 8 (5-15); Blood Urea Nitrogen 48 mg/dL (7-18); Calcium 6.4 mg/dL (8.5-10.1); Carbon Dioxide 17 mmol/L (21-32); Chloride 118 mmol/L (98-107); Glucose 231 mg/dL (74-106); Sodium 143 mmol/L (136-145)
[2021-03-17 19:24] LABS: Alanine Aminotransferase 32 U/L (16-61); Alkaline Phosphatase 170 U/L (45-117); Aspartate Aminotransferase 73 U/L (15-37); BUN/Creatinine Ratio 11.8; Bilirubin, Total < 0.1 mg/dL (0.2-1.0); GFR African American 22 mL/min; GFR Non-African American 18 mL/min; Total Protein 4.7 g/dL (6.4-8.2)
[2021-03-17 19:29] LABS: Lactic Acid w/Reflex 7.3 mmol/L (0.4-2.0)
[2021-03-17 19:33] LABS: INR 1.44 (0.9-1.15); Partial Thromboplastin Time 43.5 sec (23.6-33.0)
[2021-03-17 19:55] LABS: Albumin 0.9 g/dL (3.4-5.0)
[2021-03-17 20:36] LABS: Band Neutrophils % (manual) 30; Lymphocytes % (manual) 4 (10.0-50.0); Monocytes % (manual) 1 (0-12)
[2021-03-17] MEDS: ALBUMIN 25% 100 ML IV SCH ×2 (21:10→21:46)
[2021-03-17] MEDS ORDERED: PANTOPRAZOLE 40 MG/10 ML VIAL INJ IV ONE (22:00)
[2021-03-17] MEDS: LINEZOLID 600MG/300ML 300 ML IV SCH (23:00)
[2021-03-17] MEDS: PHENYTOIN SODIUM 50 MG/ML 2ML VIAL IV SCH (23:01)
[2021-03-18] VITALS (24 sets, daily range): BP systolic 57–163; BP diastolic 27–101
[2021-03-18] MEDS ORDERED: SODIUM BICARBONATE 8.4 % INJ 50ML VIAL IV ONE (01:15)
[2021-03-18] MEDS ORDERED: SODIUM BICARBONATE 650 MG TAB ONE (01:15)
[2021-03-18] MEDS ORDERED: DEXTROSE (50%) 50ML SYRG IV ONE (01:15)
[2021-03-18] MEDS ORDERED: CALCIUM GLUC 1,000mg/50ml-NS 50 ML IV ONE ×2 (01:15→11:30)
[2021-03-18] MEDS ORDERED: SODIUM ZIRCONIUM CYCL 10 GM PAK PO ONE ×2 (01:15→11:30)
[2021-03-18] MEDS ORDERED: InsuLIN REG 1unit/0.01ml Soln (100units/ml) IV ONE (01:15)
[2021-03-18] MEDS ORDERED: ALBUTEROL SULF 2.5 MG/0.5ML(0.5%) NEB SOLN NEB ONE ×2 (01:15→11:30)
[2021-03-18] MEDS: MIDAZOLAM DRIP 50 mg/50mL 50 ML IV SCH ×2 (02:09→15:08)
[2021-03-18] MEDS: PIPERACILLIN-TAZOB 2.25GM 50 ML IV SCH ×2 (02:11→09:27)
[2021-03-18] MEDS: SODIUM BICARBONATE 650 MG TAB PO SCH ×5 (02:13→22:00)
[2021-03-18] MEDS: PHENYLEPHRINE IV 250 ML IV SCH ×3 (05:10→13:30)
[2021-03-18 05:36] LABS: Albumin 1.6 g/dL (3.4-5.0); Bilirubin, Direct 0.2 mg/dL (0-0.2); Bilirubin, Total 0.5 mg/dL (0.2-1.0); Calcium 6.2 mg/dL (8.5-10.1); Total Protein 4.7 g/dL (6.4-8.2)
[2021-03-18 05:46] LABS: INR 1.51 (0.9-1.15)
[2021-03-18] MEDS: ACCU-CHEK COMFORT CURVE STRIP VI SCH ×4 (06:00→18:35)
[2021-03-18] MEDS: InsuLIN REG 1unit/0.01ml Soln (100units/ml) SC SCH ×4 (06:00→18:37)
[2021-03-18 06:13] LABS: Partial Thromboplastin Time 60.7 sec (23.6-33.0)
[2021-03-18 06:17] LABS: Potassium 5.7 mmol/L (3.5-5.1)
[2021-03-18] MEDS: NOREPINEPHRINE 8 MG/250ML KIT 250 ML IV SCH (08:09)
[2021-03-18] MEDS: PHENYTOIN SODIUM 50 MG/ML 2ML VIAL IV SCH (09:08)
[2021-03-18] MEDS: ASCORBIC ACID 500 MG TAB PO SCH (09:30)
[2021-03-18] MEDS: FLUCONAZOLE 100 MG TAB PO SCH (09:30)
[2021-03-18] MEDS: ZINC SULFATE 220mg CAP or TAB PO SCH (09:30)
[2021-03-18] MEDS: PANTOPRAZOLE 40 MG/10 ML VIAL INJ IV SCH (09:30)
[2021-03-18] MEDS: ENOXAPARIN SOD 30 MG/0.3 ML SYRINGE SC SCH (09:31)
[2021-03-18] MEDS ORDERED: ALBUMIN 25% 100 ML IV ONE (10:00)
[2021-03-18] MEDS: LINEZOLID 600MG/300ML 300 ML IV SCH (10:00)
[2021-03-18 11:28] LABS: Basophils # (auto) 0 10 ^3/uL (0-0.2); Basophils % (auto) 0.2 % (0.0-2.0); Eosinophils # (auto) 0 10 ^3/uL (0-0.8); Hematocrit 25.4 % (41.0-53.0); Hemoglobin 7.7 g/dL (13.5-17.5); Lymphocytes # (auto) 1.4 10 ^3/uL (0.4-5.4); Lymphocytes % (auto) 5.7 % (10.0-50.0); Mean Corpuscular Hemoglobin 29.2 pg (28.0-32.0); Mean Corpuscular Hgb Conc. 30.3 g/dL (32.0-36.0); Mean Corpuscular Volume 96.6 fL (80.0-100.0); Monocytes # (auto) 0.2 10 ^3/uL (0-1.3); Monocytes % (auto) 0.7 % (0.0-12.0); Neutrophils # (auto) 22.8 10 ^3/uL (1.6-8.6); Neutrophils % (auto) 93.4 % (37.0-80.0); Nucleated Red Blood Cells % 0.1 %; Red Blood Cells 2.63 10^6/uL (4.5-5.90); Red Cell Distribution Width 18.5 % (11.8-14.3); White Blood Cell 24.5 10^3/uL (4.4-10.8)
[2021-03-18] MEDS ORDERED: SODIUM BICARBONATE 8.4% INJ 50ML SYRINGE IV ONE (11:30)
[2021-03-18] MEDS ORDERED: DexAMETHasone SOD PHOS 10MG/1ML VIAL INJ IV ONE (12:30)
[2021-03-18] MEDS: SODIUM ZIRCONIUM CYCL 10 GM PAK PO SCH ×2 (14:00→22:00)
[2021-03-18] MEDS: SODIUM CHLORIDE 0.9% 1,000 ML IV SCH (14:23)
[2021-03-18 16:28] LABS: Sodium 138 mmol/L (136-145)
[2021-03-18 16:29] LABS: Anion Gap 12 (5-15); Blood Urea Nitrogen 53 mg/dL (7-18); Carbon Dioxide 12 mmol/L (21-32); Chloride 114 mmol/L (98-107); Glucose 283 mg/dL (74-106)
[2021-03-18 16:30] LABS: Alanine Aminotransferase 45 U/L (16-61); Albumin 1.9 g/dL (3.4-5.0); Alkaline Phosphatase 175 U/L (45-117); Aspartate Aminotransferase 237 U/L (15-37); BUN/Creatinine Ratio 10.7; Bilirubin, Total 0.4 mg/dL (0.2-1.0); Calcium 6.2 mg/dL (8.5-10.1); GFR African American 17 mL/min; GFR Non-African American 14 mL/min; Total Protein 5.2 g/dL (6.4-8.2)
[2021-03-18] MEDS ORDERED: ALBUMIN 5% 250 ML IV ONE (20:31)
[2021-03-18] MEDS ORDERED: EPINEPHrine HCL 1 MG/10 ML SYRG ONE (20:54)
[2021-03-18] MEDS: DexAMETHasone SOD PHOS 10MG/1ML VIAL INJ IV SCH (21:45)
[2021-03-18] MEDS ORDERED: PHENYTOIN SODIUM 50 MG/ML 2ML VIAL IV ONE (22:00)
[2021-03-18] MEDS: PROPOFOL 100 ML IV SCH (22:02)
[2021-03-18 22:25] LABS: Basophils # (auto) 0 10 ^3/uL (0-0.2); Eosinophils # (auto) 0 10 ^3/uL (0-0.8); Monocytes % (auto) 0.4 % (0.0-12.0); Red Blood Cells 2.13 10^6/uL (4.5-5.90)
[2021-03-18 22:27] LABS: Basophils % (auto) 0.2 % (0.0-2.0); Eosinophils % (auto) 0.2 % (0.0-7.0); Hematocrit 18.1 % (41.0-53.0); Lymphocytes # (auto) 1.1 10 ^3/uL (0.4-5.4); Mean Corpuscular Hemoglobin 29.4 pg (28.0-32.0); Mean Corpuscular Hgb Conc. 34.5 g/dL (32.0-36.0); Mean Corpuscular Volume 85.2 fL (80.0-100.0); Monocytes # (auto) 0 10 ^3/uL (0-1.3); Neutrophils # (auto) 11.4 10 ^3/uL (1.6-8.6); Neutrophils % (auto) 90.2 % (37.0-80.0); Nucleated Red Blood Cells % 0.3 %; Red Cell Distribution Width 16.6 % (11.8-14.3); White Blood Cell 12.7 10^3/uL (4.4-10.8)
[2021-03-18 22:33] LABS: Hemoglobin 6.3 g/dL (13.5-17.5)
[2021-03-18 22:39] LABS: BUN/Creatinine Ratio 9.3; Calcium 6.1 mg/dL (8.5-10.1); Magnesium 2.4 mg/dL (1.6-2.6); Phosphorus 5.5 mg/dL (2.5-4.90); Potassium 3.8 mmol/L (3.5-5.1)
[2021-03-18] MEDS: MEROPENEM 500MG IVPB 50 ML IV SCH (23:29)
[2021-03-18] MEDS: fentaNYL Drip 2500mCg/250mlNS 250 ML IV SCH (23:36)
[2021-03-19] VITALS (25 sets, daily range): BP systolic 104–148; BP diastolic 66–96
[2021-03-19] MEDS: NOREPINEPHRINE 8 MG/250ML KIT 250 ML IV SCH ×2 (02:30→16:16)
[2021-03-19 04:15] LABS: Basophils # (auto) 0 10 ^3/uL (0-0.2); Eosinophils # (auto) 0 10 ^3/uL (0-0.8); Eosinophils % (auto) 0.1 % (0.0-7.0); Lymphocytes # (auto) 0.7 10 ^3/uL (0.4-5.4); Monocytes # (auto) 0.1 10 ^3/uL (0-1.3); Neutrophils # (auto) 11.5 10 ^3/uL (1.6-8.6)
[2021-03-19 04:18] LABS: Basophils % (auto) 0.2 % (0.0-2.0); Hematocrit 16.2 % (41.0-53.0); Lymphocytes % (auto) 5.9 % (10.0-50.0); Mean Corpuscular Hemoglobin 30.4 pg (28.0-32.0); Mean Corpuscular Hgb Conc. 36.2 g/dL (32.0-36.0); Mean Corpuscular Volume 84.1 fL (80.0-100.0); Monocytes % (auto) 0.7 % (0.0-12.0); Neutrophils % (auto) 93.1 % (37.0-80.0); Red Blood Cells 1.93 10^6/uL (4.5-5.90); Red Cell Distribution Width 16.4 % (11.8-14.3); White Blood Cell 12.4 10^3/uL (4.4-10.8)
[2021-03-19 04:26] LABS: Albumin 1.4 g/dL (3.4-5.0); BUN/Creatinine Ratio 9.2; Potassium 4.1 mmol/L (3.5-5.1)
[2021-03-19 04:29] LABS: Bilirubin, Total 0.7 mg/dL (0.2-1.0); Total Protein 4.3 g/dL (6.4-8.2)
[2021-03-19 04:54] LABS: Hemoglobin 5.9 g/dL (13.5-17.5)
[2021-03-19] MEDS: PROPOFOL 100 ML IV SCH ×4 (05:30→22:41)
[2021-03-19] MEDS: InsuLIN REG 1unit/0.01ml Soln (100units/ml) SC SCH ×3 (06:00→12:44)
[2021-03-19] MEDS: SODIUM BICARBONATE 650 MG TAB PO SCH ×3 (06:00→21:58)
[2021-03-19] MEDS: SODIUM ZIRCONIUM CYCL 10 GM PAK PO SCH (06:00)
[2021-03-19] MEDS: ACCU-CHEK COMFORT CURVE STRIP VI SCH ×3 (06:00→12:00)
[2021-03-19] MEDS: MIDAZOLAM DRIP 50 mg/50mL 50 ML IV SCH ×4 (06:51→16:18)
[2021-03-19] MEDS: PANTOPRAZOLE 40 MG/10 ML VIAL INJ IV SCH (10:00)
[2021-03-19] MEDS: DexAMETHasone SOD PHOS 10MG/1ML VIAL INJ IV SCH ×2 (10:00→21:59)
[2021-03-19] MEDS: FLUCONAZOLE 200MG/100ML 100 ML IV SCH (10:00)
[2021-03-19] MEDS: ENOXAPARIN SOD 30 MG/0.3 ML SYRINGE SC SCH (10:00)
[2021-03-19] MEDS ORDERED: diphenhdrAMINE HCL 25 MG CAP PO STA (10:49)
[2021-03-19] MEDS ORDERED: diphenhdrAMINE HCL 50 MG/1 ML VL ONE (10:58)
[2021-03-19] MEDS ORDERED: diphenhdrAMINE HCL 50 MG/1 ML VL IM PRN (11:15)
[2021-03-19] MEDS: SODIUM CHLORIDE 0.9% 1,000 ML IV SCH ×2 (11:33→23:20)
[2021-03-19] MEDS: MEROPENEM 500MG IVPB 50 ML IV SCH ×2 (11:46→21:58)
[2021-03-19] MEDS: LINEZOLID 600MG/300ML 300 ML IV SCH (13:00)
[2021-03-19 16:53] LABS: Hematocrit 20.9 % (41.0-53.0); Hemoglobin 7.5 g/dL (13.5-17.5)
[2021-03-19] MEDS: PHENYLEPHRINE IV 250 ML IV SCH ×3 (20:00→22:50)
[2021-03-20] VITALS (64 sets, daily range): BP systolic 0–131; BP diastolic 0–85
[2021-03-20] MEDS: ACCU-CHEK COMFORT CURVE STRIP VI SCH ×4 (00:02→17:57)
[2021-03-20] MEDS: InsuLIN REG 1unit/0.01ml Soln (100units/ml) SC SCH ×4 (00:09→18:24)
[2021-03-20] MEDS: LINEZOLID 600MG/300ML 300 ML IV SCH ×2 (00:30→13:28)
[2021-03-20] MEDS: MIDAZOLAM DRIP 50 mg/50mL 50 ML IV SCH ×5 (00:30→16:56)
[2021-03-20] MEDS: fentaNYL Drip 2500mCg/250mlNS 250 ML IV SCH (01:15)
[2021-03-20] MEDS: PROPOFOL 100 ML IV SCH ×2 (02:16→09:14)
[2021-03-20 05:22] LABS: Albumin 1.4 g/dL (3.4-5.0); Potassium 5.2 mmol/L (3.5-5.1)
[2021-03-20 05:45] LABS: Calcium 5.2 mg/dL (8.5-10.1)
[2021-03-20 06:04] LABS: Hemoglobin 7.3 g/dL (13.5-17.5)
[2021-03-20] MEDS: SODIUM BICARBONATE 650 MG TAB PO SCH ×3 (06:13→17:57)
[2021-03-20 06:31] LABS: Hematocrit 19.8 % (41.0-53.0); Mean Corpuscular Hemoglobin 30.9 pg (28.0-32.0); Mean Corpuscular Hgb Conc. 36.8 g/dL (32.0-36.0); Mean Corpuscular Volume 83.9 fL (80.0-100.0); Red Blood Cells 2.36 10^6/uL (4.5-5.90); Red Cell Distribution Width 15.9 % (11.8-14.3); White Blood Cell 19.5 10^3/uL (4.4-10.8)
[2021-03-20 06:33] LABS: Basophils % (manual) 0 (0.0-2.0); Blast Cells 0; Eosinophils % (manual) 0 (0-7); Metamyelocytes % 0; Myelocytes % 0; Promyelocytes % 0; Reactive Lymphocytes 0
[2021-03-20 06:59] LABS: BUN/Creatinine Ratio 8.9
[2021-03-20] MEDS ORDERED: CALCIUM GLUC 1,000mg/50ml-NS 50 ML IV ONE (07:00)
[2021-03-20 07:02] LABS: Total Protein 4.7 g/dL (6.4-8.2)
[2021-03-20] MEDS: PHENYLEPHRINE IV 250 ML IV SCH ×2 (07:10→13:28)
[2021-03-20 07:11] LABS: Band Neutrophils % (manual) 32; Lymphocytes % (manual) 11 (10.0-50.0); Monocytes % (manual) 1 (0-12)
[2021-03-20] MEDS: SODIUM CHLORIDE 0.9% 1,000 ML IV SCH (09:14)
[2021-03-20] MEDS: DexAMETHasone SOD PHOS 10MG/1ML VIAL INJ IV SCH (10:00)
[2021-03-20] MEDS: ENOXAPARIN SOD 30 MG/0.3 ML SYRINGE SC SCH (10:00)
[2021-03-20] MEDS: PANTOPRAZOLE 40 MG/10 ML VIAL INJ IV SCH (10:00)
[2021-03-20] MEDS: FLUCONAZOLE 200MG/100ML 100 ML IV SCH (10:00)
[2021-03-20] MEDS: PHENYTOIN SODIUM 50 MG/ML 2ML VIAL IV SCH (10:01)
[2021-03-20] MEDS: MEROPENEM 500MG IVPB 50 ML IV SCH (10:10)
[2021-03-20] MEDS ORDERED: SODIUM ZIRCONIUM CYCL 10 GM PAK ONE (13:54)
[2021-03-20] MEDS: SODIUM ZIRCONIUM CYCL 10 GM PAK PO SCH (13:55)
[2021-03-20] MEDS: NOREPINEPHRINE 8 MG/250ML KIT 250 ML IV SCH (16:56)
[2021-03-20] MEDS ORDERED: HYDROmorphone HCL 2 MG/ML VL IV PRN (20:00)
[2021-03-20] MEDS ORDERED: LORazepam 2MG/ML-1ML VIAL IV PRN (20:00)
[2021-03-20] MEDS ORDERED: HYDROmorphone HCL 2 MG/ML VL ONE (20:07)
[2021-03-23] MEDS ORDERED: DexAMETHasone SOD PHOS 10MG/1ML VIAL INJ IV SCH (10:00)
== END 2021-03-21 02:11 | DRG 720 ==
LOC: ER 14:08 → OVERFLOW 03-13 06:42 → WEST WING 03-13 11:53 → TELE-WESTW 03-15 15:33 → ICU WEST 03-17 00:49
PROVIDERS: ADMIT Nurse Practitioner; ATTEND Internal Medicine
PROC: 30233N1 Transfusion of Nonautologous Red Blood Cells into Peripheral Vein, Percutaneous Approach (ICD-10-PCS; principal; 2021-03-13)
PROC: XW033E5 Introduction of Remdesivir Anti-infective into Peripheral Vein, Percutaneous Approach, New Technology Group 5 (ICD-10-PCS; 2021-03-15)
PROC: 5A0935A Assistance with Respiratory Ventilation, Less than 24 Consecutive Hours, High Flow/Velocity Cannula (ICD-10-PCS; 2021-03-16)
PROC: 5A1945Z Respiratory Ventilation, 24-96 Consecutive Hours (ICD-10-PCS; 2021-03-17)
PROC: 0BH17EZ Insertion of Endotracheal Airway into Trachea, Via Natural or Artificial Opening (ICD-10-PCS; 2021-03-17)
PROC: 06HY33Z Insertion of Infusion Device into Lower Vein, Percutaneous Approach (ICD-10-PCS; 2021-03-17)
PROC: 5A1D70Z Performance of Urinary Filtration, Intermittent, Less than 6 Hours Per Day (ICD-10-PCS; 2021-03-18)
PROC: 06HY33Z Insertion of Infusion Device into Lower Vein, Percutaneous Approach (ICD-10-PCS; 2021-03-18)
PROC: 5A12012 Performance of Cardiac Output, Single, Manual (ICD-10-PCS; 2021-03-18)
DX: A41.89 Other specified sepsis (principal); J96.00 Acute respiratory failure, unspecified whether with hypoxia or hypercapnia; N17.0 Acute kidney failure with tubular necrosis; G93.6 Cerebral edema; J12.82 Pneumonia due to coronavirus disease 2019; E10.10 Type 1 diabetes mellitus with ketoacidosis without coma; G40.401 Other generalized epilepsy and epileptic syndromes, not intractable, with status epilepticus; E43 Unspecified severe protein-calorie malnutrition; D69.6 Thrombocytopenia, unspecified; U07.1 COVID-19; Z66 Do not resuscitate; G93.41 Metabolic encephalopathy; G93.1 Anoxic brain damage, not elsewhere classified; L03.116 Cellulitis of left lower limb; N18.4 Chronic kidney disease, stage 4 (severe); E87.5 Hyperkalemia; E10.22 Type 1 diabetes mellitus with diabetic chronic kidney disease; L30.9 Dermatitis, unspecified; F15.10 Other stimulant abuse, uncomplicated; R74.01 Elevation of levels of liver transaminase levels; D64.9 Anemia, unspecified; F17.210 Nicotine dependence, cigarettes, uncomplicated; E88.09 Other disorders of plasma-protein metabolism, not elsewhere classified; Z68.1 Body mass index [BMI] 19.9 or less, adult; R65.21 Severe sepsis with septic shock; Z83.3 Family history of diabetes mellitus; Z82.3 Family history of stroke; Z80.9 Family history of malignant neoplasm, unspecified
CPT/HCPCS: 36415; 36600; 70450; 71045; 73700; 76705; 76775; 80048; 80053; 80074; 80076; 80185; 80202; 80320; 81001; 82550; 82570; 82705; 82784; 82805; 82962; 83516; 83605; 83735; 84100; 84156; 84300; 85007; 85014; 85018; 85025; 85027; 85610; 85652; 85730; 86255; 86703; 86850; 86900; 86901; 86920; 87040; 87045; 87070; 87077; 87081; 87086; 87088; 87205; 87426; 87427; 87493; 90935; 93971; 94002; 94003; 94640; 94644; 95819; 96361; 96365; C9113; G0378; J0330; J0696; J1100; J1450; J1815; J2185; J2250; J2405; J2543; J2704; J3490; J7060; P9047